=== PATIENT | male | born 1990 | race Two or more races ===

== ENCOUNTER 2018-09-10 11:19 | Day surgery (SDC) | payer OTHER ==
[2018-09-10] VITALS (12 sets, daily range): BP systolic 128–152; BP diastolic 70–97
[~2018-09-10] VITALS: Ht 188 cm; Wt 81.6 kg
[~2018-09-10 11:19] MED LIST: ceFAZolin sod 1gm in D5W 55ml IVPB ONE; celeBREX 200mg Cap **SURGERY PATIENTS ONLY ORAL ONE; oxyCONTIN 20mg tab ORAL ONE
[2018-09-10] MEDS ORDERED: NORCO 10-325 T1 EACH ORAL (13:01)
[2018-09-10] MEDS ORDERED: oxyCONTIN 20mg tab ORAL ONE (13:05)
[2018-09-10] MEDS ORDERED: celeBREX 200mg Cap **SURGERY PATIENTS ONLY ORAL ONE (13:05)
[2018-09-10] MEDS ORDERED: Morphine Sulfate PF 0 ML ONE (16:17)
[2018-09-10] MEDS ORDERED: Ketorolac 30mg Inj ONE (16:18)
[2018-09-10] MEDS ORDERED: Lidocaine 1% 10mg/ml/Epi 0.005mg/ml 30ml vial INJ ONE (16:18)
[2018-09-10] MEDS ORDERED: Bupivacaine 0.25% Inj 30ml INJ ONE ×2 (16:18→16:20)
[2018-09-10] MEDS ORDERED: Kenalog-40 1ml Vial ONE (16:18)
[2018-09-10] MEDS ORDERED: Clindamycin 2 ML ONE (16:19)
[2018-09-10] MEDS ORDERED: Clindamycin 600mg 50 ML IV ONE (16:20)
[2018-09-10] MEDS ORDERED: LR 1000ml ONE (16:30)
[2018-09-10] MEDS ORDERED: Sterile Water Irrig 1000ml IRRIG ONE (16:30)
[2018-09-10] MEDS ORDERED: Midazolam 2mg/2ml Inj ONE (16:34)
[2018-09-10] MEDS ORDERED: fentaNYL 100 mcg/2 mL IV ONE (16:34)
[2018-09-10] MEDS ORDERED: Metoclopramide 10mg/2ml Inj ONE (16:35)
[2018-09-10] MEDS ORDERED: Propofol 200mg/20ml IV ONE (16:35)
[2018-09-10] MEDS ORDERED: EPINEPHrine 1mg/1ml Amp ONE (16:35)
[2018-09-10] MEDS ORDERED: Ropivacaine 5mg/ml Vial 30ml INJ ONE (16:35)
[2018-09-10] MEDS ORDERED: Lidocaine 1% MPF 10mg/ml 5ml ONE (16:35)
[2018-09-10] MEDS ORDERED: NS Irrig 4000ml IRRIG ONE (17:00)
--- NOTE | 2018-09-10 17:05 | Pre-Procedure Note/Attestation ---
Pre-Procedure Note/Attestation Complete Prior to Procedure Planned Procedure: left Procedure Narrative: knee arthroscopy, orif tibia Indications for Procedure Pre-Operative Diagnosis: left knee tibial plateau fx Attestation I attest that I discussed the nature of the procedure; its benefits; risks and complications; and alternatives (and the risks and benefits of such alternatives ), prior to the procedure, with the patient (or the patient's legal collections representative). I attest that, if there was a reasonable possibility of needing a blood transfusion, the patient (or the patient's legal collections representative) was given the [facility] standardized written summary, pursuant to the Samuel Blair Blood Safety Act ([place] Health and Safety Code # 1645, as amended). I attest that I re-evaluated the patient just prior to the surgery and that there has been no change in the patient's H&P, except as documented below: Carter Lewis MD Sep 10, 2018 17:05
--- NOTE | 2018-09-10 17:05 | Operative Note - PDOC ---
Operative Note Operative Note Pre-op Diagnosis: left knee tibial plateau fx Procedure: see op report Post-op Diagnosis: same as pre-op plus Operative Findings: consistent w/pre-op dx studies Anesthesia: MAC Specimen: none Complications: none Condition: stable Estimated Blood Loss: none Implant(s) used?: Yes aCrter Lewis MD Sep 10, 2018 17:05
[2018-09-10] MEDS ORDERED: D5 1/2NS 1,000 ML IV SCH (17:15)
[2018-09-10] MEDS ORDERED: Norco 5mg/325mg tab ORAL PRN (17:15)
[2018-09-10] MEDS ORDERED: Tylenol #3 tab (300mg/30mg) ORAL PRN (17:15)
[2018-09-10] MEDS ORDERED: HYDROmorphone 1mg/ml Carpuject SUBQ PRN (17:15)
[2018-09-10] MEDS ORDERED: Metoclopramide 10mg/2ml Inj IVP PRN (17:30)
[2018-09-10] MEDS ORDERED: fentaNYL 100 mcg/2 mL IV PRN (17:30)
--- NOTE | 2018-09-10 17:36 | Anethesia Preoperative Eval ---
Anesthesia Pre-op PMH/ROS General Date of Evaluation: Sep 10, 2018 Time of Evaluation: 16:30 Anesthesiologist: French ASA Score: ASA 1 Mallampati Score Class I : Soft palate, uvula, fauces, pillars visible Class II: Soft palate, uvula, fauces visible Class III: Soft palate, base of uvula visible Class IV: Only hard plate visible Mallampati Classification: Class II Surgeon: anupam Diagnosis: tibia plateau fx Surgical Procedure: left knee arthrosopy with ORIF lateral tibial plateau fx Anesthesia History: none Family History: no anesthesia problems Allergies: Coded Allergies: SHELLFISH DERIVED (Verified Allergy, Severe, 09/10/18) swollen throat, hives CIPROFLOXACIN (Verified Allergy, Intermediate, hives, 09/09/18) IODINATED CONTRAST- ORAL AND IV DYE (Verified Allergy, Intermediate, hives , 09/09/18) Medications: see eMAR Patient NPO?: Yes NPO Date: Sep 10, 2018 NPO Time: 00:01 Past Medical History Cardiovascular: Denies: HTN, CAD, PA, valve dz, arrhythmia, other Pulmonary: Denies: asthma, COPD, CHRIS, other Neurologic/Psychiatric: Denies: dementia, CVA, depression/anxiety, TIA, other Endocrine: Denies: DM, hypothyroidism, steroids, other HEENT: Denies: cataract (L), cataract (R), glaucoma, RESIGHINI (L), RESIGHINI (R), other Hematology/Immune: Denies: anemia, DVT, bleeding disorder, other Musculoskeletal/Integumentary: Denies: OA, RA, DJD, DDD, edema, other Anesthesia Pre-op Phys. Exam Physician Exam Last Vital Signs Date Time Temp Pulse Resp B/P (MAP) Pulse Ox O2 Delivery O2 Flow Rate FiO2 09/10/18 13:10 98.6 88 18 130/84 99 Room Air Constitutional: NAD Neurologic: CN 2-12 intact Cardiovascular: RRR Respiratory: CTA Gastrointestinal: S/NT/ND Airway Exam Mallampati Classification 2 Mallampati Score: Class II MO: full ROM: full Dentures: no upper, no lower Anesthesia Pre-op A/P Studies Pre-op Studies: EKG - sr Risk Assessment & Plan Plan: general / peripheral nerve Status Change Before Surgery: No Pre-Antibiotics Drug: cleocin Given Within 1 Hr of Incision: Yes Time Given: 17:00 Tarrillion,Emperatriz Edmonds [employer]UTTLE FINAL INSPECTOR Sep 10, 2018 17:36
--- NOTE | 2018-09-10 18:14 | Immediate Post-Op Evaluation ---
Immediate Post-Op Evalulation Immediate Post-Op Evalulation Procedure: left knee arthroscopy; ORIF lateral tibial Date of Evaluation: Sep 10, 2018 Time of Evaluation: 18:14 IV Fluids: 500 Blood Pressure Systolic: 128 Blood Pressure Diastolic: 70 Pulse Rate: 83 Respiratory Rate: 14 O2 Sat by Pulse Oximetry: 100 Temperature (Fahrenheit): 97.5 Nausea: No Vomiting: No Complications none Patient Status: awake, reacts, patent Hydration Status: adequate Drug: ceoclin Given Within 1 Hr of Incision: Yes Time Given: 17:00 Emperatriz Braswell CRNA Sep 10, 2018 18:14
--- NOTE | 2018-09-10 19:18 | Diagnostic Imaging Report ---
EXAM: XR Left Knee, 2 views CLINICAL HISTORY: F/U TECHNIQUE: Two views of the left knee. COMPARISON: No relevant prior studies available. FINDINGS: Bones/joints: Post surgical changes noted within the lateral tibial plateau. Lucency noted through the tibial plateau likely representing known fracture. Lucency noted through the head and neck of the fibula, likely representing subacute fracture. No dislocation. Soft tissues: Unremarkable. IMPRESSION: 1. Post surgical changes noted within the lateral tibial plateau. Lucency noted through the tibial plateau likely representing known fracture. 2. Lucency noted through the head and neck of the fibula, likely representing subacute fracture.
--- NOTE | 2018-09-10 20:03 | 48 Hour Post Anesthesia Eval ---
Post Anesthesia Evaluation Procedure: left knee arthroscopy; ORIF lateral tibial Date of Evaluation: Sep 10, 2018 Time of Evaluation: 20:03 Blood Pressure Systolic: 135 0: 87 Pulse Rate: 90 Respiratory Rate: 14 Temperature (Fahrenheit): 97.5 O2 Sat by Pulse Oximetry: 100 Airway: patent Nausea: No Vomiting: No Hydration Status: adequate Cardiopulmonary Status: stable Mental Status/LOC: patient returned to baseline Post-Anesthesia Complications: none Follow-up care needed: N/A Emperatriz Braswell CRNA Sep 10, 2018 20:03
--- NOTE | 2018-09-10 20:14 | NUR ---
PT CLAIMS HE HAS WHEELCHAIR TO UE AT HOME. ALSO CLAIMS CA NOT UE CRUTCHE DUE TO ISSUES ON HIS ARM.
--- NOTE | 2018-09-11 01:30 | Operative Note - Dictated ---
DATE OF OPERATION: 09/10/2018 PREOPERATIVE DIAGNOSES: 1. Left lateral tibial plateau fracture. 2. Left knee internal derangement. POSTOPERATIVE DIAGNOSES: 1. Left lateral tibial plateau fracture. 2. Intra-articular loose body. 3. Hypertrophic fat pad/ligamentum mucosum. PROCEDURES: 1. Left knee diagnostic arthroscopy, removal of intra-articular loose bodies. 2. Synovectomy of lateral patellofemoral compartment. 3. Open reduction and internal fixation, lateral tibial plateau fracture with two screws. SURGEON: Carter Lewis M.D. ANESTHESIA: MAC with femoral adductor block. INDICATION FOR PROCEDURE: The patient sustained a significant injury to the left knee, lateral tibial plateau fracture. Subsequently had a CT scan, which showed a slight displacement of the articular surface. Given his age and activity level, it is felt that closed reduction and percutaneous pinning of lateral tibial plateau fracture would be reasonable. Risks, limitations, expectations, and complications of procedure were discussed in detail. All questions were addressed. DESCRIPTION OF PROCEDURE: After informed consent was obtained, the patient was brought to the operating room. The patient was placed under femoral adductor general anesthesia. The left leg was prepped and draped in sterile manner. Time-out was performed. An inferolateral stab incision was then made. Trocar was introduced into the knee joint. The evacuation of the hematoma was performed. Once that was done, a systematic tour of the knee was performed. The medial compartment was entered free of meniscal or chondral damage. Intercondylar notch was entered with hypertrophic tissue making it difficult to visualize and therefore medial working portal was established. Synovectomy and excision of fat pad of the medial compartment, intercondylar notch and lateral compartment was performed. ACL was probed, noted to be intact. At this point, the lateral compartment was entered. There was intra-articular loose body that was floating around, which was removed. Once the intraarticular loose body was removed, the lateral meniscus was probed and noted to be intact. There was grade 2 chondral damage along the fracture site and lateral tibial plateau fracture. At this point, a clamp was then placed percutaneously through the lateral fracture and reduction was performed, radiographically seemed like the fracture seemed to close down. Therefore, two additional partially-threaded cannulated screws were then placed fixation. Once that was done, the instruments were removed. Skin was closed using 3-0 Monocryl sutures. Steri-Strips and a sterile dressing were applied. The patient was awoken and taken to the recovery room with stable vital signs. EBL: 50 mL. COMPLICATIONS: None. SPECIMENS: None. IMPLANTS: Two 5.0 partially-threaded cannulated screws. Carter Lewis M.D. DR: LISA JOB#: [id number] CC: CLEO
--- NOTE | 2018-09-13 15:48 | Diagnostic Imaging Report ---
Indication: Left knee pain 6 fluoroscopic views of the left knee were obtained. Findings: Fixation screw oriented horizontally in the area of the lateral tibial plateau on 6 fluoroscopically obtained images in the operating room. Fluoroscopic time 27 seconds. IMPRESSION: Intraoperative imaging
== END 2018-09-10 19:50 | disposition home or self-care (01) ==
LOC: SUR 11:19
DX: S82.142A Displaced bicondylar fracture of left tibia, initial encounter for closed fracture (principal); M23.42 Loose body in knee, left knee; M79.4 Hypertrophy of (infrapatellar) fat pad; Z88.1 Allergy status to other antibiotic agents; Z91.041 Radiographic dye allergy status; Z88.0 Allergy status to penicillin; Z91.013 Allergy to seafood
CPT/HCPCS: 27524; 29875; 73560; 76000; C1713; J0171; J2250; J2405; J2704; J2765; J2795; J3010; J3490; S0077; 94003; 94150